=== PATIENT | male | born 1940 | race Caucasian/White ===

== ENCOUNTER 2020-07-14 09:39 | Outpatient (CLI) | payer MEDICARE, SELFPAY | END 2020-07-14 09:40 | disposition home or self-care (01) | LOC: ANHCOVIDVC 09:40 | PROVIDERS: PCP Emergency Medicine | DX: Z23 Encounter for immunization (principal) | CPT/HCPCS: 0001A; 91300 ==

== ENCOUNTER 2020-08-04 09:42 | Outpatient (CLI) | payer MEDICARE, SELFPAY | END 2020-08-04 09:43 | disposition home or self-care (01) | LOC: ANHCOVIDVC 09:42 | PROVIDERS: PCP Emergency Medicine | DX: Z23 Encounter for immunization (principal) | CPT/HCPCS: 0002A; 91300 ==